=== PATIENT | male | born 1990 | race Caucasian/White ===

== ENCOUNTER 2021-06-04 17:33 | Emergency (ER) | payer SELFPAY ==
[~2021-06-04] VITALS: Ht 185.4 cm; Wt 81.8 kg
[2021-06-04] MEDS ORDERED: IV NORMAL SALINE 1000ML BAG 1,000 ML IV ONE (20:00)
[2021-06-04] MEDS ORDERED: IBUPROFEN 200 MG TABLET. PO ONE (20:00)
--- NOTE | 2021-06-04 20:37 | RAD ---
XR ELBOW COMPLETE_LEFT 3+VIEWS 06/04/2021 8:25 PM INDICATION: Blunt trauma swelling COMPARISON: None available. TECHNIQUE: 3 views of the left elbow are provided. FINDINGS/ IMPRESSION: No significant knee joint effusion. There is no acute fracture or dislocation. Joint spaces are maint ained. Bone mineralization is within normal limits. Regional soft tissues are within normal limits. T here is no soft tissue gas or osseous erosion. No radiopaque foreign body. There is incidental findin g of a supracondylar spur. Electronically signed by: Genny Greene MD (06/04/2021 8:35 PM) [facility]
[2021-06-04 20:40] LABS: BASO # 0.1 x10^3/uL (0.0-0.2); BASO % 0 % (0-3); EOS % 0 % (0-3); HEMATOCRIT 48.5 % (39.0-53.0); HEMOGLOBIN 16.4 g/dL (13.0-17.5); LYMPH # 1.5 x10^3/uL (1.0-4.8); LYMPH % 11 % (24-48); MEAN CORPUSCULAR HEMOGLOBIN 30 pg (25-35); MEAN CORPUSCULAR HGB CONC 34 g/dL (31-37); MEAN CORPUSCULAR VOLUME 87 fL (79-100); MONO # 0.6 x10^3/uL (0.0-1.1); MONO % 4 % (0-9); NEUT # 11.8 x10^3/uL (1.8-7.7); NEUT % 84 % (31-73); PLATELET COUNT 350 x10^3/uL (140-400); RED BLOOD COUNT 5.58 x10^6/uL (4.30-5.70); RED CELL DISTRIBUTION WIDTH 12.2 % (11.5-14.5); WHITE BLOOD COUNT 13.9 x10^3/uL (4.0-11.0)
[2021-06-04 20:55] LABS: CALCIUM 9.1 mg/dL (8.5-10.1); CREATININE 0.9 mg/dL (0.7-1.3); GFR 98.4; POTASSIUM 4.8 mmol/L (3.5-5.1)
--- NOTE | 2021-06-04 21:14 | RAD ---
EXAM: CHEST ONE VIEW. HISTORY: Chest pain. COMPARISON: None. FINDINGS: A frontal view of the chest is obtained. There are no confluent infiltrates. The left costophrenic angle is partially excluded. There is no pn eumothorax or pleural effusion. The heart is not enlarged. IMPRESSION: 1. No confluent infiltrates. Electronically signed by: Tamara Rizzo MD (06/04/2021 9:12 PM) [facility]
[2021-06-04] MEDS ORDERED: BACITRACIN TOPICAL OINT PACKET. TP ONE (21:30)
[2021-06-04 21:32] VITALS: BP 116/64
--- NOTE | 2021-06-04 21:32 | PHYS DOC ---
Past Medical History Additional Past Medical Histor: RECOVERING HEROIN ADDICT Past Surgical History: Other Additional Past Surgical Histo: SKIN GRAFT, COLLAR BONE Smoking Status: Unknown if ever smoked Additional Information: CHEWING TOBACCO Alcohol Use: Occasionally Social History Narrative: RECOVERING HEROIN ADDICT General Adult EDM: Chief Complaint: MEDICAL CLEARANCE HPI: HPI: Patient is a 30-year-old male who presents to the emergency department complaining of chest pain and left elbow pain after being tackled by the police. Patient is currently in police custody and in handcuffs, was chased and subdued by [place] police officers, PD officers brought patient in for medical evaluation prior to taking to alf. Patient reports a past medical history of IV drug use, reports chest pain and discomfort without radiation of pain, chest palpitations, diaphoresis, cough or congestion, nausea, vomiting, or diarrhea. Patient reports pain started after being chased by police and tackled. Patient denies taking prescription medications at home. Patient reports his last tetanus immunization was less than 5 years ago. Patient reports being a cigarette smoker, occasional alcohol drinker, occasional heroin abuser. Patient denies other physical complaints or physical concerns. Review of Systems: Review of Systems: 14 body systems of review of systems have been reviewed. See HPI for pertinent positives and negative responses, otherwise all other systems are negative, nonpertinent or noncontributory. Constitutional: Negative except as outlined in HPI above. Skin: Negative except as outlined in HPI above. Eyes: Negative except as outlined in HPI above. HENT: Negative except as outlined in HPI above. Respiratory: Negative except as outlined in HPI above. Cardiovascular: Negative except as outlined in HPI above. GI: Negative except as outlined in HPI above. : Negative except as outlined in HPI above. Musculoskeletal: Negative except as outlined in HPI above. Integument: Negative except as outlined in HPI above. Neurologic: Negative except as outlined in HPI above. Endocrine: Negative except as outlined in HPI above. Lymphatic: Negative except as outlined in HPI above. Psychiatric: Negative except as outlined in HPI above. Heart Score: C/O Chest Pain: N/A HEART Score for Chest Pain: HEART Score for Chest Pain Response (Comments) Value History Slighlty/Non-Suspicious 0 ECG Normal 0 Age < 45 0 Risk Factors 1 or 2 Risk Factors 1 Troponin < Normal Limit 0 Total 1 Risk Factors: Risk Factors: DM, Current or recent (<one month) smoker, HTN, HLP, family histo ry of CAD, obesity. Risk Scores: Score 0 - 3: 2.5% MACE over next 6 weeks - Discharge Home Score 4 - 6: 20.3% MACE over next 6 weeks - Admit for Clinical Observation Score 7 - 10: 72.7% MACE over next 6 weeks - Early Invasive Strategies Current Medications: Current Medications Medications (Trade) Dose Ordered Sig/[place] Start Time Stop Time Status Last Admin Dose Admin Ibuprofen (Motrin) 600 mg 1X ONCE 06/04/21 20:00 06/04/21 20:16 DC 06/04/21 20:17 600 MG Sodium Chloride 1,000 ml @ 1,000 mls/hr 1X ONCE 06/04/21 20:00 06/04/21 20:59 DC Allergies: Allergies: Allergies Coded Allergies Type Severity Reaction Last Updated Verified No Known Drug Allergies 06/04/21 No Physical Exam: PE: Constitutional: Well developed, well nourished, no acute distress, non-toxic appearance. 30-year-old male is handcuffed to bed with [place] at bedside, otherwise in no apparent distress. HENT: Normocephalic, atraumatic. No deep tissue infectious process of the oropharynx appreciated, no lymphadenopathy of the head and neck appreciated. Bilateral TMs within normal limits, intact. Bilateral nasal turbinates patent, moist. Eyes: Conjunctiva normal, no discharge. Neck: Normal range of motion, no stridor. Cardiovascular: No cyanosis appreciated, distal cap refill less than 2 seconds. Heart rate tachycardic, heart sounds S1-S2 to auscultation. Lungs & Thorax: Patient is in no respiratory distress, no audible adventitious lung sounds appreciated. Lung sounds clear to auscultation all lung valdovinos. Abdomen: Nontender, no abnormalities noted. Skin: Warm, dry, no erythema, no rash. See extremity note for focus skin examination. Back: No tenderness, no deformities. Extremities: No tenderness, no cyanosis, no clubbing, ROM intact, no edema. Swelling to left elbow with abrasion to tip of olecranon process skin surface, full passive range of motion without crepitus, no deformity appreciated, full passive range of motion of the wrist elbow and shoulder joint without discrepancy distal cap refill is less than 2 seconds, there is no edema to the left arm. No bleeding from abrasion. 2+ radial pulses bilaterally. Neurologic: Alert and oriented X 3, normal motor function, normal sensory fu nction, no focal deficits noted. Psychologic: Affect normal, judgement normal, mood normal. Current Patient Data: Labs: Laboratory Tests Test 06/04/21 20:20 White Blood Count 13.9 x10^3/uL (4.0-11.0) H Red Blood Count 5.58 x10^6/uL (4.30-5.70) Hemoglobin 16.4 g/dL (13.0-17.5) Hematocrit 48.5 % (39.0-53.0) Mean Corpuscular Volume 87 fL (79-100) Mean Corpuscular Hemoglobin 30 pg (25-35) Mean Corpuscular Hemoglobin Concent 34 g/dL (31-37) Red Cell Distribution Width 12.2 % (11.5-14.5) Platelet Count 350 x10^3/uL (140-400) Neutrophils (%) (Auto) 84 % (31-73) H Lymphocytes (%) (Auto) 11 % (24-48) L Monocytes (%) (Auto) 4 % (0-9) Eosinophils (%) (Auto) 0 % (0-3) Basophils (%) (Auto) 0 % (0-3) Neutrophils # (Auto) 11.8 x10^3/uL (1.8-7.7) H Lymphocytes # (Auto) 1.5 x10^3/uL (1.0-4.8) Monocytes # (Auto) 0.6 x10^3/uL (0.0-1.1) Eosinophils # (Auto) 0.0 x10^3/uL (0.0-0.7) Basophils # (Auto) 0.1 x10^3/uL (0.0-0.2) Sodium Level 137 mmol/L (136-145) Potassium Level 4.8 mmol/L (3.5-5.1) Chloride Level 100 mmol/L (98-107) Carbon Dioxide Level 28 mmol/L (21-32) Anion Gap 9 (6-14) Blood Urea Nitrogen 12 mg/dL (8-26) Creatinine 0.9 mg/dL (0.7-1.3) Estimated GFR (Cockcroft-Gault) 98.4 Glucose Level 102 mg/dL (70-99) H Calcium Level 9.1 mg/dL (8.5-10.1) Troponin I High Sensitivity 6 ng/L (4-75) Laboratory Tests 06/04/21 20:20 Laboratory Tests 06/04/21 20:20 Vital Signs: Vital Signs Date Time Temp Pulse Resp B/P (MAP) Pulse Ox O2 Delivery O2 Flow Rate FiO2 06/04/21 19:30 98.3 115 20 164/86 (112) 99 Room Air 98.3 EKG: EKG: EKG performed at 1946 per ED nursing staff shows a sinus tachycardia heart rate 113 bpm without other ectopy, NM interval point 120, QTc interval 0.45, no acute STEMI, no ACS, no acute ischemia appreciated, EKG interpreted by ED attending physician Dr. Valdez. Radiology/Procedures: Radiology/Procedures: STATUS: REG ER ORD. PHYSICIAN: MONICA MINA APRN REASON: Chest pain PROCEDURE: CHEST AP ONLY EXAM: CHEST ONE VIEW. HISTORY: Chest pain. COMPARISON: None. FINDINGS: A frontal view of the chest is obtained. There are no confluent infiltrates. The left costophrenic angle is partially excluded. There is no pneumothorax or pleural effusion. The heart is not enlarged. IMPRESSION: 1. No confluent infiltrates. Electronically signed by: Tamara Rizzo MD (06/04/2021 9:12 PM) [facility] REASON: Blunt trauma swelling PROCEDURE: ELBOW LEFT 3V XR ELBOW COMPLETE_LEFT 3+VIEWS 06/04/2021 8:25 PM INDICATION: Blunt trauma swelling COMPARISON: None available. TECHNIQUE: 3 views of the left elbow are provided. FINDINGS/ IMPRESSION: No significant knee joint effusion. There is no acute fracture or dislocation. Joint spaces are maintained. Bone mineralization is within normal limits. Regional soft tissues are within normal limits. There is no soft tissue gas or osseous erosion. No radiopaque foreign body. There is incidental finding of a supracondylar spur. Electronically signed by: Genny Greene MD (06/04/2021 8:35 PM) [facility] Course & Med Decision Making: Course & Med Decision Making Pertinent Labs and Imaging studies reviewed. (See chart for details) 30-year-old male, vital signs reviewed, presents emergency department concerning pain after being subdued by police officers. Patient physical examination consistent with patient's explanation of events. Will order EKG, troponin I, CBC, BMP, chest x-ray, x-ray of left elbow, apply ice pack to elbow, patient's tetanus status is reported up-to-date, Adacel/Tdap not indicated for today's visit. Cleansing of left elbow abrasion with application of antibiotic ointment and dressing per nursing staff. Patient EKG unremarkable, labs nonconcerning, chest x-ray unremarkable, x-ray of left elbow unremarkable for acute fracture or injury. Discussed findings with patient, abrasion to left elbow, recommended ice packs, daily cleansing with bacitracin ointment applications and bandage, [id number] ibuprofen or Tylenol for ongoing pain, patient gave verbal understanding of and is amenable to ED discharge planning. Discussed with the patient all findings and diagnostic testing as well as the need to follow-up with their primary care provider for further evaluation and treatment or return to the ED if any new or worsening symptoms. Strict return precautions were also discussed at length, the patient voiced understanding and agreement with the discharge planning. The patient was nontoxic in appearance, in no apparent distress, and hemodynamically stable at the time of disposition. Patient escorted from the ED in police custody. Mao Disclaimer: Mao Disclaimer: This electronic medical record was generated, in whole or in part, using a voice recognition dictation system. Departure Departure Impression: Primary Impression: Abrasion of left elbow Qualified Codes: S50.312A - Abrasion of left elbow, initial encounter Additional Impressions: Contusion of left elbow Qualified Codes: S50.02XA - Contusion of left elbow, initial encounter Chest wall pain Disposition: 01 HOME / SELF CARE / HOMELESS Condition: GOOD Referrals: NO PCP (PCP) Patient Instructions: Abrasions, Chest Wall Pain, Elbow Contusion Additional Instructions: You were seen in the emergency department today after being subdued by police officers and you have reported pain to your left elbow and chest. The x-rays of your elbow and chest did not show any concerning findings. Your EKG and lab w ork were nonconcerning. Your elbow abrasion was cleansed and dressed in the emergency department. Ice packs were applied. Please continue to use ice to your sore areas 30 minutes on and 30 minutes off while awake. Daily cleansing and application of antibiotic ointment to your abrasions. Follow-up with your primary care physician soon for reevaluation of symptoms. Return to the emergency department for worsening symptoms or other concerns. If you do not have a primary care provider, I have listed area providers for you to follow-up with. Thank you for visiting our Emergency Department. It was a pleasure taking care of you today in the emergency department and we appreciate you trusting us with your care. If any additional problems come up don't hesitate to return to visit us. Please follow up with your primary care provider so they can plan additional care if needed and know about the problem that you had. If symptoms worsen come back to the Emergency Department. Any concerning symptoms that start such as chest pain, shortness of air, weakness or numbness on one side of the body, running high fevers or any other concerning symptoms return to the ER. [facility] [address] [place] [address] [facility] [address] [place] [address] [facility] [address] [place] [address] [facility] [address] [place] [address] [facility] [address] [place] [address] [facility] [address] [place] [address] [facility] [address] [place] [address] [facility] [address] [place] [address] [facility] [address] [place] [address] [facility] [address] [place] [address] MONICA MINA APRN Jun 04, 2021 21:32
--- NOTE | 2021-06-05 18:08 | EKG ---
[facility] [address] [place] [address] Test Date: 2021-06-04 Test Time: 19:46:16 Pat Name: RINA GODOY Department: Room: Gender: M Product Advisor: : 1990 Requested By: MONICA MINA Order Number: [id number] Reading MD: Pito Perez Measurements Intervals [place] Rate: 113 P: 90 MD: 120 QRS: 82 QRSD: 92 T: 66 QT: 310 QTc: 425 Interpretive Statements SINUS TACHYCARDIA OTHERWISE NORMAL ECG RI6.02 No previous ECG available for comparison Electronically Signed On 06-06-2021 15:56:53 [employer] by Pito Perez
== END 2021-06-04 21:36 ==
LOC: ER 17:33
DX: S50.02XA Contusion of left elbow, initial encounter (principal); R07.89 Other chest pain; R00.0 Tachycardia, unspecified; F17.220 Nicotine dependence, chewing tobacco, uncomplicated; X58.XXXA Exposure to other specified factors, initial encounter; Y93.89 Activity, other specified; Y92.89 Other specified places as the place of occurrence of the external cause; Y99.8 Other external cause status
CPT/HCPCS: 36415; 71045; 73080; 80048; 84484; 85025; 93005; 99285-25